=== PATIENT | female | born 1970 | race Two or more races ===

== ENCOUNTER → 2017-02-09 | Outpatient (CLI) | payer OTHER | END | disposition home or self-care (01) | LOC: LAB 14:20 | PROVIDERS: ATTEND Registered Nurse General Practice | DX: Z20.9 Contact with and (suspected) exposure to unspecified communicable disease (principal) | CPT/HCPCS: 36415; 86706; 86735; 86762; 86765; 86787 ==

== ENCOUNTER → 2019-08-15 | Outpatient (CLI) | payer BC ==
[2019-08-15 13:29] LABS: Basophils # (auto) 0 uL; Basophils % (auto) 0.5 % (0.0-2.0); Eosinophils # (auto) 0.2 uL; Eosinophils % (auto) 3.7 % (0.0-7.0); Hematocrit 39.8 % (36.0-46.0); Hemoglobin 13.5 g/dL (12.2-16.2); Lymphocytes # (auto) 1.7 uL; Lymphocytes % (auto) 30.2 % (10.0-50.0); Mean Corpuscular Hemoglobin 31.6 pg (28.0-32.0); Mean Corpuscular Volume 93.1 fL (80.0-100.0); Monocytes # (auto) 0.4 uL; Monocytes % (auto) 6.3 % (0.0-12.0); Neutrophils # (auto) 3.3 uL; Neutrophils % (auto) 59.3 % (37.0-80.0); Platelet Count (auto) 261 10^3/uL (140-450); Red Blood Cells 4.27 10^6/uL (4.0-5.20); Red Cell Distribution Width 13.1 % (11.8-14.3); White Blood Cell 5.6 10^3/uL (4.4-10.8)
[2019-08-15 13:38] LABS: Potassium 3.9 mmol/L (3.5-5.1)
[2019-08-15 13:45] LABS: Albumin 3.8 g/dL (3.4-5.0); BUN/Creatinine Ratio 23.6; Bilirubin, Total 1.3 mg/dL (0.2-1.0); Total Protein 7.3 g/dL (6.4-8.2)
== END | disposition home or self-care (01) ==
LOC: LAB 08:02
PROVIDERS: ATTEND Internal Medicine
DX: Z00.00 Encounter for general adult medical examination without abnormal findings (principal); M54.31 Sciatica, right side
CPT/HCPCS: 36415; 80053; 80061; 84443; 85025

== ENCOUNTER → 2023-02-09 | Day surgery (SDC) | payer BC ==
[2023-02-04 10:16] LABS: Basophils # (auto) 0 10 ^3/uL (0-0.2); Basophils % (auto) 0.5 % (0.0-2.0); Eosinophils # (auto) 0.2 10 ^3/uL (0-0.8); Hematocrit 38.6 % (36.0-46.0); Hemoglobin 13.3 g/dL (12.2-16.2); Lymphocytes # (auto) 2.6 10 ^3/uL (0.4-5.4); Lymphocytes % (auto) 38.5 % (10.0-50.0); Mean Corpuscular Hemoglobin 31.3 pg (28.0-32.0); Mean Corpuscular Hgb Conc. 34.5 g/dL (32.0-36.0); Mean Corpuscular Volume 90.7 fL (80.0-100.0); Monocytes # (auto) 0.4 10 ^3/uL (0-1.3); Neutrophils # (auto) 3.6 10 ^3/uL (1.6-8.6); Nucleated Red Blood Cells % 0.1 %; Red Blood Cells 4.26 10^6/uL (4.0-5.20); Red Cell Distribution Width 13.6 % (11.8-14.3); White Blood Cell 6.9 10^3/uL (4.4-10.8)
[2023-02-04 10:55] LABS: INR 0.96 (0.9-1.15); Partial Thromboplastin Time 26.8 SEC (24.5-34.5); Prothrombin Time 10.1 sec (9.3-11.8)
[2023-02-04 10:56] LABS: Albumin 3.9 g/dL (3.4-5.0); Calcium 9.1 mg/dL (8.5-10.1); Potassium 4.3 mmol/L (3.5-5.1)
[2023-02-04 11:00] LABS: BUN/Creatinine Ratio 19.7 (10.0-20.0); Bilirubin, Total 0.7 mg/dL (0.2-1.0); Total Protein 7.4 g/dL (6.4-8.2)
[2023-02-04 11:02] LABS: Urine Bacteria NONE SEEN /hpf (None Seen); Urine Blood Negative /uL (Negative); Urine Clarity Clear (Clear); Urine Color Yellow (Yellow); Urine Protein, UAD Negative (Negative); Urine Specific Gravity 1.021 (1.001-1.035); Urine Urobilinogen Normal (Negative); Urine WBC 1 /hpf (0 - 5)
[~2023-02-09] VITALS: Ht 167.6 cm; Wt 104.3 kg
[~2023-02-09] MED LIST: ACET1CAP14 PO; BACITRACIN TOP OINT 1 UD PKG TOP ONE; GLYCOPYRROLATE 0.2 MG/ML 1ML VIAL ONE; HYDROmorphone HCL 2 MG/ML VL/or syr IV PRN; IBU600T PO; LIDOCAINE 2% (LOCAL ANESTH.) PF 5ml SDV ONE; MIDAZOLAM HCL 2MG/2ML 2ml VIAL (1mg/ml) ONE; NEOSTIGMINE 1 MG/ML INJ (10mg/10ML VIAL) ONE; ONDANSETRON HCL 4 MG/2 ML VIAL IV PRN; ONDANSETRON HCL 4 MG/2 ML VIAL ONE; PROPOFOL 10 MG/ML 20 ML IV ONE; ROCURONIUM 10MG/ML 10ML VIAL IV ONE; ROPIVACAINE 0.5% (5MG/ML) 20ML AMPULE IJ ONE; ceFAZolin 1GM/50ML 100 ML IV ONE; fentaNYL CITRATE 5 ML ONE
[2023-02-09 09:10] VITALS: TEMP 96.9
[2023-02-09 09:30] VITALS: O2SAT 100
[2023-02-09 10:00] VITALS: BP 136/65; PULSE 83; RESP 12
== END | disposition home or self-care (01) ==
LOC: SUR 06:10
PROVIDERS: ATTEND Podiatrist Foot & Ankle Surgery
DX: M77.32 Calcaneal spur, left foot (principal); M89.9 Disorder of bone, unspecified; M76.62 Achilles tendinitis, left leg; M25.775 Osteophyte, left foot; S86.012A Strain of left Achilles tendon, initial encounter; X58.XXXA Exposure to other specified factors, initial encounter; Y93.89 Activity, other specified; Y92.89 Other specified places as the place of occurrence of the external cause; Y99.8 Other external cause status
CPT/HCPCS: 27650; 28118; 36415; 80053; 81001; 85025; 85610; 85730; J0690; J2001; J2250; J2405; J2704; J2795; J3010